=== PATIENT | female | born 1945 | race African-American/Black ===

== ENCOUNTER 2017-12-06 10:33 | Outpatient (CLI) | payer MEDICARE ==
--- NOTE | 2017-12-07 15:07 | Cat Scan Report ---
FINAL REPORT EXAM: CT CHEST W CON HISTORY: LUNG NODULES TECHNIQUE: CT of the chest performed. IV contrast was administered. Axial images and coronal and sagittal reformatted images were obtained. PRIORS: None. FINDINGS: There is no significant mediastinal or hilar mass seen. There are no pleural effusions seen. There is no pneumothorax seen. There is a calcified nodule in the left upper lobe which is consistent with a granuloma. There are multiple small nodular and elongated densities in the right upper lobe which appear to be located within several right upper lobe bronchi. This likely reflects some mucous plugging within the bronchi. This is best appreciated on the coronal images, best example series 200, image 45. There is some dependent atelectasis at the lung bases. IMPRESSION: There multiple nodular any elongated densities in the right upper lobe which appear to be located within several right upper lobe bronchi. This likely reflects some mucous plugging within the bronchi. Recommend follow-up in 3 months to confirm stability. Compare with prior studies if available. Left upper lobe nodule is compatible with a calcified granuloma.
== END 2017-12-06 10:34 | disposition home or self-care (01) ==
LOC: CT 10:33
PROVIDERS: ATTEND Internal Medicine
DX: J98.11 Atelectasis (principal); R91.8 Other nonspecific abnormal finding of lung field; R91.1 Solitary pulmonary nodule
CPT/HCPCS: 36415; 71260; 82565; 84520; Q9967

== ENCOUNTER 2017-12-08 11:23 | Outpatient (CLI) | payer MEDICARE ==
--- NOTE | 2017-12-08 13:01 | Mammography Report ---
Left mammogram: The patient is post right mastectomy for cancer. Images of the left breast demonstrates a heterogeneously dense fibroglandular pattern with no evidence of mass nor architectural distortion. Benign appearing scattered non-clustered calcifications. CAD used. Impression: No suspicious findings. Recommendation: Annual mammogram followup. BI-RADS CATEGORY: 1 = Negative ACR BI-RADS MAMMOGRAPHIC CODES: 0 = Needs additional imaging evaluation; 1 = Negative; 2 = Benign; 3 = Probably benign; 4 = Suspicious; 5 = Malignant; 6 = Known biopsy-proven malignancy COMMENT: 1. Dense breast tissue, i.e., adenosis, fibrocystic changes, etc., may obscure an underlying neoplasm. 2. Approximately 10% of cancers are not detected with mammography. 3. A negative mammography report should not delay biopsy if a clinically suspicious mass is present.
== END 2017-12-08 11:24 | disposition home or self-care (01) ==
LOC: SPVWC 11:23
PROVIDERS: ATTEND Internal Medicine
DX: Z12.31 Encounter for screening mammogram for malignant neoplasm of breast (principal)

== ENCOUNTER 2017-12-14 11:02 | Day surgery (SDC) | payer MEDICARE ==
[2017-12-14] MEDS ORDERED: NEOFRIN OD ONE (11:31)
[2017-12-14] MEDS ORDERED: MYDRIACYL OD ONE (11:31)
[2017-12-14] MEDS ORDERED: IOPIDINE OD ONE (11:31)
[2017-12-14] MEDS ORDERED: IOPIDINE ONE (14:24)
[2017-12-14] MEDS ORDERED: MYDRIACYL ONE (14:24)
[2017-12-14] MEDS ORDERED: NEOFRIN ONE (14:24)
[2017-12-14 15:17] VITALS: BP 130/67
== END 2017-12-14 11:03 | disposition home or self-care (01) ==
LOC: OR 11:02
PROVIDERS: ATTEND Specialist
DX: H26.491 Other secondary cataract, right eye (principal); K21.9 Gastro-esophageal reflux disease without esophagitis; E78.00 Pure hypercholesterolemia, unspecified; I10 Essential (primary) hypertension; Z98.51 Tubal ligation status

== ENCOUNTER 2018-12-11 13:34 | Outpatient (CLI) | payer MEDICARE ==
--- NOTE | 2018-12-11 14:29 | Mammography Report ---
LEFT DIGITAL SCREENING MAMMOGRAM with CAD: 12/11/18 13:34:00 CLINICAL: Routine screening. Breast cancer survivor status post right mastectomy. COMPARISON:12/08/17 FINDINGS: The patient could not optimally hold her breath and motion blur is present on a couple of images. The breast is heterogeneously dense, which may obscure small masses. A few scattered benign calcifications.No mass, suspicious architectural distortion or suspicious calcifications. IMPRESSION: No mammographic evidence of malignancy. BI-RADS CATEGORY: 2 -- Benign RECOMMENDATION: Routine screening in one year. ACR BI-RADS MAMMOGRAPHIC CODES: 0 = Needs additional imaging evaluation; 1 = Negative; 2 = Benign; 3 = Probably benign; 4 = Suspicious; 5 = Malignant; 6 = Known biopsy-proven malignancy COMMENT: 1. Dense breast tissue, i.e., adenosis, fibrocystic changes, etc., may obscure an underlying neoplasm. 2. Approximately 10% of cancers are not detected with mammography. 3. A negative mammography report should not delay biopsy if a clinically suspicious mass is present. COMMENT: Patient follow-up letters are generated via our [employer] application.
== END 2018-12-11 13:35 | disposition home or self-care (01) ==
LOC: SPVWC 13:34
PROVIDERS: ATTEND Internal Medicine
DX: Z12.31 Encounter for screening mammogram for malignant neoplasm of breast (principal); E78.00 Pure hypercholesterolemia, unspecified; I10 Essential (primary) hypertension; K21.9 Gastro-esophageal reflux disease without esophagitis; Z90.11 Acquired absence of right breast and nipple; Z90.12 Acquired absence of left breast and nipple